=== PATIENT | female | born 1980 | race Caucasian/White ===

== ENCOUNTER → 2024-06-03 09:53 | Outpatient (REF) | payer BC, SELFPAY | LOC: HWRAD 09:53 | PROVIDERS: ATTENDING PHYSICIAN Nurse Practitioner; FAMILY PHYSICIAN Family Medicine; REFERRING PHYSICIAN Internal Medicine Rheumatology | DX: R35.0 Frequency of micturition (principal); M06.00 Rheumatoid arthritis without rheumatoid factor, unspecified site | CPT/HCPCS: 73110; 73130; 73630; 76770; 76856 ==

== ENCOUNTER → 2024-06-18 09:42 | Outpatient (REF) | payer BC, SELFPAY | LOC: RAD 09:42 | PROVIDERS: ATTENDING PHYSICIAN Internal Medicine Rheumatology; FAMILY PHYSICIAN Family Medicine | DX: M06.00 Rheumatoid arthritis without rheumatoid factor, unspecified site (principal) | CPT/HCPCS: 76882 ==

== ENCOUNTER 2024-08-08 02:26 | Emergency (ER) | payer BC, SELFPAY ==
[2024-08-08 02:29] VITALS: BP 116/85
--- NOTE | 2024-08-08 02:39 | ED.GENMED ---
History of Present Illness
General
Chief Complaint: Chest Pain
Source: patient and ambulance crew
Exam Limitations: none
Time Seen by Provider: 08/08/24 02:35
Nursing documentation reviewed up to this point in time: agreed with
History of Present Illness
History of Present Illness:
This a pleasant 43-year-old female presents to the emergency department with substernal chest pain that woke her from sleep. She states that the pain radiates through to her left shoulder. She states that she became diaphoretic and was breathing
quickly initially but that has resolved. Denies previous cardiac history. Does have a history of GERD. She is a non-smoker having quit over 15 years ago. She does have a family history significant for cardiovascular disease. Her dad at age
55 from kidney failure but had 2 heart attacks prior to that. Patient denies illicit drug use. Does not drink alcohol. She does not work outside of the home.
Past History
Past History
ED Past Medical History: None
ED Past Surgical History: Appendectomy, and Urological (Donor nephrectomy)
Patient has exhibited threatening behavior?: No
Social History
Tobacco: Smoker
Alcohol: Occasional
Drug: None
Personal:
Living: with family
Employment: Employed
Family History
Family History: Other (Mother with breast cancer, father with chronic renal insufficiency and coronary artery disease)
Review of Systems
Review of Systems
Allergies reviewed?: Yes
All Other Systems: ROS reviewed and negative except as documented in HPI and ROS
Constitutional: Reports no symptoms
EENT: Reports no symptoms
Respiratory: Reports no symptoms
Cardiac: Reports chest pain and diaphoresis; Denies palpitations
ABD/GI: Reports no symptoms
: Reports no symptoms
Musculoskeletal: Reports no symptoms
Skin: Reports no symptoms
Neurological: Reports no symptoms
Endocrine: Reports no symptoms
Hematologic/Lymphatic: Reports no symptoms
Psychiatric: Reports anxiety
Phy Exam
General Physical Exam
General Presentation: well appearing and no apparent distress
General Skin: warm and dry
General Habitus: normal
General Mental: alert
General Hydration: appears well hydrated
ENT Exam
ENT Exam: EOMI, pharynx normal, neck supple and normocephalic
Eye Exam
Eye Exam: PERRL, cornea clear and conjunctiva normal
Cardiovascular Exam
Cardiovascular Exam: regular rate/rhythm, no edema, no murmur and normal peripheral pulses
Pulmonary Exam
Pulmonary Exam: lungs clear, no respiratory distress, no rales, no crackles, no rhonchi, no stridor, no wheezing and no cough
Gastrointestinal Exam
Gastrointestinal Exam: normal bowel sounds, non tender, soft, no organomegaly, no pulsatile mass and non distended
Neurological Exam
Neurological Exam: alert, oriented x3, no motor deficits and speech normal
Musculoskeletal Exam
Musculoskeletal Exam: full ROM and no edema
Skin Exam
Skin Exam: normal color, warm/dry, no rash and no petechia
Psychiatric Exam
Psychiatric Exam: normal mood/affect
Scores
Heart Score for Chest Pain Patients
STEMI patient?: Not applicable
Course
Orders/Labs/Results
Orders:
Orders
08/08/24 02:27
EKG [Electrocardiogram (*1)] Urgent
Reason for Study: Chest Pain
EKG- Treatment ONCE
08/08/24 02:41
Complete Blood Count/With Diff Urgent
D-Dimer Urgent
NT-proBNP Urgent
PTT Urgent
Prothrombin Time Urgent
Troponin I Urgent
08/08/24 02:42
Comprehensive Metabolic Panel Urgent
TSH Urgent
08/08/24 03:27
CT Chest PE Study Urgent
Comment:
Reason For Exam: cp, dyspnea, elev ddimer
08/08/24 04:28
Troponin I Urgent
Abnormal Lab Results
08/08/24 08/08/24
02:41 02:42
WBC 11.7 H 10^3/uL
(4.8-10.8)
RBC 3.78 L 10^6/uL
(4.20-5.40)
Hgb 10.0 L g/dL
(12.0-16.0)
Hct 30.0 L %
(37.0-47.0)
MCV 79.4 L fL
(81.0-99.0)
MCH 26.5 L pg
(27.0-31.0)
RDW 14.6 H %
(11.5-14.5)
Absolute Neuts (auto) 8.2 H 10^3/uL
(1.4-6.5)
D-Dimer 0.73 H ug/mlFEU
(0.00-0.50)
Glucose 132 H mg/dl
(70-99)
AST 58 H U/L
(14-36)
ALT 37 H U/L
(0-35)
Alkaline Phosphatase 147 H U/L
(38-126)
Albumin 3.4 L g/dl
(3.5-5.0)
08/08/24 02:41
08/08/24 02:42
Vital Signs
Initial and Last Documented VS:
Initial Vital Signs
Temp Pulse Resp BP Pulse Ox
98.0 F 85 18 116/85 98
08/08/24 02:29 08/08/24 02:29 08/08/24 02:29 08/08/24 02:29 08/08/24 02:29
Last Documented Vital Signs
Temp Pulse Resp BP Pulse Ox
98.0 F 92 21 116/80 95
08/08/24 02:29 08/08/24 05:45 08/08/24 06:00 08/08/24 03:00 08/08/24 05:45
*Critical Care Note
Total Time (30-74mins, 75-104mins- exclusive of procedures): Not Applicable
Update Note
Update Note:
CTA chest with IV contrast
IMPRESSION:
No definite pulmonary embolus. Artifact limits overall assessment.
Artifact limits assessment of the aorta without definite dissection or aneurysm. Cardiomegaly.
Dependent atelectasis. No pneumothorax or pleural effusion. Liver is enlarged. Postoperative changes at the GE junction; correlate with patient history. If no prior imaging or history, consider endoscopy given the wall thickening and surrounding
inflammation in this region.
Spleen is enlarged. Left kidney not visualized. Cervical spinal hardware.
ED Attending Note
-
Portions of this chart may have been created with voice recognition software.� Occasional wrong word or��sound alike� substitutions may have occurred due to the inherent limitations of voice recognition software.
Discharge Plan
Departure
Patient Disposition: Home (Routine Discharge)
Date of Disposition: 08/08/24
Time of Disposition: 05:26
Patient with high blood pressure during this ER visit?: No
Condition: Good
Discharge Problem:
Chest pain
Instructions: Chest Pain CBC Follow Up
Prescriptions:
No Action
hydroxychloroquine [Plaquenil] 200 MG tablet
200 mg PO BID
levothyroxine 88 mcg Tablet
88 mcg PO DAILY
Fergon 225 mg (27 mg iron) Tablet
1 mg PO DAILY
fluoxetine [Prozac] 20 mg Capsule
20 mg PO DAILY
dextroamphetamine-amphetamine [Adderall XR] 25 mg Capsule,Extended Release 24hr
25 mg PO DAILY
Referrals:
Petty Leal DO [Family Provider] -
Activity Restrictions/Additional Instructions:
Thank You for choosing [facility].
It was a pleasure meeting you and taking part in your care. We hope for your continued healing and wellness.
Please read discharge instructions in their entirety. However, they are for general education and may not describe your exact diagnosis at discharge. Information on your ER visit and medical conditions were discussed with you along with appropriate
follow up information...
If indicated, please take your medications as instructed and indicated on discharge paperwork.
Please schedule a follow up appointment as directed. Call to schedule an appointment
Please return to the emergency department with ANY change in, persisting, or worsening of symptoms. If any of your symptoms do not improve, or persist, or become more severe within 6-12 hours, please return to the emergency department for further
care.
Please return to the emergency department if you develop a headache, neck pain/stiffness, fever greater than 100.4F, chest pain, shortness of breath, persistent nausea, vomiting, slurred speech, difficulty walking, numbness/tingling, weakness, signs
of infection or any other symptoms that are worrisome to you.
If you have any questions or concerns please do not hesitate to call the Hospital at or E-mail me directly at [email or web address]
Interventions
Interventions:
*Risk Screen - Suicide Last Done: 08/08/24 02:29
*General Assessment Last Done: 08/08/24 02:29
*Neglect/Abuse Screening Last Done: 08/08/24 02:29
*ED- Fall Risk Assessment Last Done: 08/08/24 02:29
*ED COVID-19 Vaccine History Last Done: 08/08/24 02:29
*Nursing Disposition Last Done: 08/08/24 06:11
ED- Cardiac Assessment Last Done: 08/08/24 02:37
Discharge Date and Time
Discharge Date/Time: 08/08/24 06:15
Print Language: [email or web address]
[2024-08-08 03:00] VITALS: BP 116/80
[2024-08-08 03:01] LABS: % Basophils 0.7 % (0-2); % Eosinophils 1.4 % (0-6); % Immature Granulocytes 0.3 % (0-0.5); % Lymphocytes 21.7 % (20.5-51.1); % Monocytes 5.2 % (1.7-9.3); % Neutrophils 70.7 % (42.2-75.2); Absolute Basophils 0.1 10^3/uL (0-0.2); Absolute Eosinophils 0.2 10^3/uL (0-0.7); Absolute Lymphocytes 2.5 10^3/uL (1.2-3.4); Absolute Monocytes 0.6 10^3/uL (0.1-0.6); Absolute Neutrophils 8.2 10^3/uL (1.4-6.5); Mean Corp Hgb Conc. 33.3 g/dL (33.0-37.0); Mean Corpuscular Hgb 26.5 pg (27.0-31.0); Mean Corpuscular Volume 79.4 fL (81.0-99.0); Mean Platelet Volume 10.3 fL (7.4-10.4); Nucleated Red Blood Cells % 0 %; Platelet Count 271 10^3/uL (130-400); Red Blood Cell Count 3.78 10^6/uL (4.20-5.40); Red Cell Dist. Width 14.6 % (11.5-14.5); White Blood Cell Count 11.7 10^3/uL (4.8-10.8)
[2024-08-08 03:11] LABS: INR 1.01; PT 13.8 Sec (11.4-14.6)
[2024-08-08 03:12] LABS: APTT 28.8 Sec (23.4-35.0)
[2024-08-08 03:14] LABS: D-Dimer 0.73 ug/mlFEU (0.00-0.50)
[2024-08-08 03:15] LABS: ALT (SGPT) 37 U/L (0-35); AST (SGOT) 58 U/L (14-36); Albumin 3.4 g/dl (3.5-5.0); Alkaline Phosphatase 147 U/L (38-126); Blood Urea Nitrogen 10 mg/dl (7-17); Calcium 9.2 mg/dl (8.4-10.2); Carbon Dioxide 25 mmol/L (22-30); Chloride 106 mmol/L (98-107); Estimated Creatinine Clearance > 125 ml/min; Glucose 132 mg/dl (70-99); Potassium 3.8 mmol/L (3.5-5.1); Sodium 139 mmol/L (135-145); Total Bilirubin 0.5 mg/dl (0.2-1.3); Total Protein 6.4 g/dl (6.3-8.2); eGFR > 60.00
[2024-08-08 03:25] LABS: NT-proBNP 45.5 pg/ml; Troponin I < 0.012 ng/ml
[2024-08-08 03:45] LABS: TSH 3.91 uIU/ml (0.47-4.68)
[2024-08-08 05:05] LABS: Troponin I < 0.012 ng/ml
== END 2024-08-08 06:15 | disposition home or self-care (01) ==
LOC: EMR 02:26
PROVIDERS: EMERGENCY PHYSICIAN Student in an Organized Health Care Education/Training Program; FAMILY PHYSICIAN Family Medicine
DX: R07.89 Other chest pain (principal); K21.9 Gastro-esophageal reflux disease without esophagitis; Z80.3 Family history of malignant neoplasm of breast; Z82.49 Family history of ischemic heart disease and other diseases of the circulatory system; Z90.5 Acquired absence of kidney
CPT/HCPCS: 99284; 71275; 80053; 83880; 84443; 84484; 85025; 85379; 85610; 85730; 93005; Q9967